=== PATIENT | male | born 1945 | race American Indian/Alaskan Native ===

== ENCOUNTER 2016-12-26 13:05 | Outpatient (CLI) | payer MEDICARE ==
--- NOTE | 2016-12-26 14:51 | XRay Report ---
Chest. Findings: The heart and pulmonary vessels are normal. The lungs are clear. There is no pleural fluid. Degenerative disc disease is seen throughout the dorsal spine. Impression: No acute findings.
== END 2016-12-26 13:06 | disposition home or self-care (01) ==
LOC: SPVIMAG 13:05
PROVIDERS: ATTEND Nurse Practitioner
DX: J01.90 Acute sinusitis, unspecified (principal); Z85.72 Personal history of non-Hodgkin lymphomas
CPT/HCPCS: 71020